=== PATIENT | male | born 1955 | race Caucasian/White ===

== ENCOUNTER → 2017-03-29 | Outpatient (CLI) | payer BC ==
[~2017-03-29] MED LIST: APIX5TAB PO; FELO10TA PO; LOSA1TAB17 PO; METO25TA35 PO; OMEG-83 PO; TAMS0.4C2 PO
== END | disposition home or self-care (01) ==
LOC: CVU 13:09
PROVIDERS: ATTEND Internal Medicine Cardiovascular Disease
DX: I87.2 Venous insufficiency (chronic) (peripheral) (principal); R22.43 Localized swelling, mass and lump, lower limb, bilateral
CPT/HCPCS: 93970